=== PATIENT | male | born 1980 | race Caucasian/White ===

== ENCOUNTER 2017-07-01 15:35 | Inpatient (IN) | payer OTHER ==
[2017-07-01] MEDS ORDERED: BOOSTRIX IM ONE ×2 (15:49→22:37)
--- NOTE | 2017-07-01 15:55 | Emergency Department Report ---
Entered by BRINA BACK, acting as scribe for IMELDA COELHO NP. Chief Complaint: Extremity Injury, Lower Stated Complaint: RT KNEE PAIN Time Seen by Provider: 07/01/17 15:45 - HPI History of Present Illness: 37 y/o male with Hx of HTN, presents with right knee pain and swelling PT states he [place] PT states today, his knee busted open and he had blood running down his leg - ROS Review of Systems: +right knee pain +right knee swelling -SOB - Exam Vital Signs: Vital Signs 07/01/17 15:47 Temperature 99 F Pulse Rate 124 H Respiratory 22 Rate Blood Pressure 233/144 O2 Sat by Pulse 97 Oximetry Physical Exam: Extremity: right anterior knee swelling, redness MSE screening note: Focused history and physical exam performed. Due to findings the following was ordered: ekg, labs, xr ED Disposition for MSE Condition: Stable This documentation as recorded by the scribe,BRINA BACK,accurately reflects the service I personally performed and the decisions made by ,IMELDA COELHO NP.
[2017-07-01 16:39] LABS: Alanine Aminotransferase 15 units/L (7-56); Albumin 3.8 g/dL (3.9-5); Albumin/Globulin Ratio 0.8 %; Alkaline Phosphatase 116 units/L (35-129); Anion Gap 19 mmol/L; Blood Urea Nitrogen 12 mg/dL (9-20); Calcium 9.6 mg/dL (8.4-10.2); Carbon Dioxide 27 mmol/L (22-30); Chloride 93.4 mmol/L (98-107); Glucose 145 mg/dL (75-100); Sodium 136 mmol/L (137-145); Total Protein 8.4 g/dL (6.3-8.2)
[2017-07-01 16:52] LABS: Basophils % (Auto) 0.2 % (0.0-1.8); Eosinophils % (Auto) 0.2 % (0.0-4.3); Hemoglobin 13.9 gm/dl (11.8-15.2); Mean Corpuscular HGB Conc 33 % (32-34); Mean Corpuscular Volume 76 fl (84-94); Platelet Count 359 K/mm3 (140-440); Red Cell Distribution Width 13.9 % (13.2-15.2); White Blood Count 19.7 K/mm3 (4.5-11.0)
[2017-07-01 16:56] LABS: Mean Corpuscular Hemoglobin 25 pg (28-32)
[2017-07-01] MEDS ORDERED: TYLENOL PO ONE ×2 (22:26→22:53)
[2017-07-01] MEDS ORDERED: CATAPRES PO ONE (22:33)
[2017-07-01] MEDS ORDERED: VANCOMYCIN/NS 1 GM/250 ML 1 GM/250 ML BAG IV ONE (23:05)
[2017-07-01] MEDS ORDERED: ZOFRAN IV ONE (23:08)
[2017-07-01] MEDS ORDERED: MORPHINE IV ONE (23:08)
[2017-07-01] MEDS ORDERED: NACL 0.9% 1000 ML 1,000 ML IV ONE (23:13)
--- NOTE | 2017-07-01 23:17 | Emergency Department Report ---
HPI - General Chief Complaint: Extremity Injury, Lower Time Seen by Provider: 07/01/17 15:45 - HPI HPI: Room 9 The patient is a 37-year-old male presenting with a chief complaint of right knee pain. Patient states approximately one week ago he slipped and fell landing on his right knee. Patient denies any lacerations at the time patient states she had pain in the knee since the fall but it increased from 4 days ago. 4 days ago the patient will also noticed swelling to the right knee. Patient states when he came to the ED and felt blood running down his leg. Patient is uncertain of his had a fever at home. The patient currently gives his pain a score of 7/10 Location: Right knee Duration: 1 week Quality: Pain Severity: 7/10 Modifying factors: [see above] Context: [see above] Mode of transportation: Unknown ED Past Medical Hx - Past Medical History Previous Medical History?: Yes Hx Hypertension: Yes Additional medical history: Right knee pain - Surgical History Past Surgical History?: Yes Additional Surgical History: Right knee meniscus and tendon repair 2010 in [place] - Family History Family history: no significant - Social History Smoking Status: Current Every Day Smoker (1/2 pack per day) Substance Use Type: None (denies illicit drug use) ED Review of Systems ROS: Stated complaint: RT KNEE PAIN Other details as noted in HPI Comment: All other systems reviewed and negative Constitutional: fever. denies: chills Eyes: denies: eye pain, eye discharge, vision change ENT: denies: ear pain, throat pain Respiratory: denies: cough, shortness of breath, wheezing Cardiovascular: denies: chest pain, palpitations Endocrine: no symptoms reported Gastrointestinal: denies: abdominal pain, nausea, diarrhea Genitourinary: denies: urgency, dysuria Musculoskeletal: back pain, arthralgia Skin: change in color. denies: lesions Neurological: denies: headache, weakness, paresthesias Psychiatric: denies: anxiety, depression Hematological/Lymphatic: denies: easy bleeding, easy bruising Physical Exam - Physical Exam Vital Signs: Vital Signs 07/01/17 07/01/17 15:47 22:00 Temperature 99 F 101.0 F H Pulse Rate 124 H 101 H Respiratory 22 18 Rate Blood Pressure 233/144 Blood Pressure 167/101 [Right] O2 Sat by Pulse 97 98 Oximetry Physical Exam: GENERAL: The patient is well-developed well-nourished male lying on stretcher not appearing to be in acute distress. [] HEENT: Normocephalic. Atraumatic. Extraocular motions are intact. Patient has moist mucous membranes. NECK: Supple. Trachea midline CHEST/LUNGS: Clear to auscultation. There is no respiratory distress noted. HEART/CARDIOVASCULAR: Regular. There is no tachycardia. There is no gallop rub or murmur. ABDOMEN: Abdomen is soft, nontender. Patient has normal bowel sounds. There is no abdominal distention. SKIN: There is a region of fluctuance overlying the right knee with entire right knee incompetence and erythema consistent with cellulitis. There is dried blood present overlying the right knee but no active discharge seen. There is no diaphoresis. NEURO: The patient is awake, alert, and oriented. The patient is cooperative. The patient has normal speech MUSCULOSKELETAL: There is tenderness to the right knee. ED Course Vital Signs 07/01/17 07/01/17 15:47 22:00 Temperature 99 F 101.0 F H Pulse Rate 124 H 101 H Respiratory 22 18 Rate Blood Pressure 233/144 Blood Pressure 167/101 [Right] O2 Sat by Pulse 97 98 Oximetry ED Medical Decision Making - Lab Data Result diagrams: 07/01/17 16:04 07/01/17 16:04 - EKG Data -: EKG Interpreted by Me EKG shows normal: sinus rhythm Rate: tachycardia (109 bpm) - EKG Data When compared to previous EKG there are: previous EKG unavailable Interpretation: nonspecific ST-T wave sia - Radiology Data Radiology results: image reviewed (right knee x-ray) interpreted by me: Right knee x-ray-no fracture seen. - Differential Diagnosis cellulitis, knee abscess, septic arthritis, Critical care attestation.: If time is entered above; I have spent that time in minutes in the direct care of this critically ill patient, excluding procedure time. ED Disposition Clinical Impression: Cellulitis of right knee, Fever Disposition: OP ADMIT IP TO THIS HOSP Is pt being admited?: Yes Does the pt Need Aspirin: Yes Condition: Fair Referrals: PRIMARY CARE, [Primary Care Provider] - 3-5 Days Time of Disposition: 23:57 (hospitalist paged) Blank Doc - Documentation Documentation: Needle aspiration of right knee fluctuance. Right knee was prepped with Betadine and then lidocaine 2% with epi was administered (total of 4 mL's). 19-gauge needle was introduced and only a small amount of blood was aspirated. There is no purulent drainage. A second site was attempted with the same results. Nursing to clean in place dressing on right knee aspiration site
[2017-07-01] MEDS ORDERED: XYLOCAINE 2%/EPI 1:100,000 INFILTRATI ONE (23:19)
[2017-07-01] MEDS ORDERED: XYLOCAINE 1%/ EPI 1:100,000 INFILTRATI ONE (23:45)
[2017-07-02] MEDS ORDERED: K-DUR PO ONE ×2 (00:01→11:40)
--- NOTE | 2017-07-02 01:36 | Admit Criteria Form ---
Admission Criteria Documentation: CELLULITIS Clinical Indications for Admission to Inpatient Care (Place 'X' for any and all applicable criteria): Admission is indicated for ANY ONE of the following(1)(2)(3)(4)(5): [ ]I. Limb-threatening infection [ ]II. High-risk comorbid condition as indicated by ANY ONE of the following: [ ]a) Uncontrolled diabetes (eg, HbA1c greater than 10% (0.1)) [ ]b) Cirrhosis [ ]c) Neutropenia [ ]d) Asplenia [ ]e) Immunosuppression [ ]f) Symptomatic heart failure [ ]III. Failure of outpatient therapy as indicated by ALL of the following: [ ]a) Progression or no improvement after adequate trial (minimum of 48 hours, with longer period for stable lower extremity infection) [ ]b) Adequate antibiotic regimen as indicated by use of ANY ONE of the following: [ ]i) First-generation cephalosporin (e.g., cephalexin) [ ]ii) Antistaphylococcal penicillin (e.g., dicloxacillin) [ ]iii) Penicillin-allergic patient regimen (clindamycin, extended-spectrum fluoroquinolone, or doxycycline) [ ]iv) Resistant organism (eg, methicillin-resistant Staphylococcus aureus) regimen (6) [ ]c) Outpatient intravenous therapy regimen is not appropriate due to ANY ONE of the following. (7)(8)(9)(10): [ ]i) It was tried and was not successful (eg, progression of infection). [ ]ii) It is not available or cannot be arranged in a clinically appropriate time frame (e.g., the next day). [ ]iii) Clinical presentation (eg, acuity of infection, rapidity of progression, confirmed or suspected bacteremia) is judged to require ALL of the following: [ ]1) Immediate initiation of intravenous therapy ( eg, cannot wait for next day) [ ]2) Intensity of patient monitoring and observation (eg, vital sign measurement, checks for infection progression) that cannot be provided at other than inpatient level of care [ ]IV. Mental status changes [ ]V. Bacteremia [ ]. Hemodynamic instability [ ]VII. Suspected necrotizing soft tissue infection (e.g., gas in tissue)(11)( 12) [ ]VIII. Orbital infection (13)(14) [ ]IX. Associated surgical procedure (e.g., abscess drainage, debridement) not amenable to outpatient, emergency department, or observation care [ ]X. Cutaneous gangrene [ ]XI. High fever (temperature greater than 39.5 degrees C (103.1 degrees F) (oral)) not responsive to outpatient, emergency department, or observation care therapy [X ]XIII. Inpatient admission required rather than observation care (Also use Cellulitis: Observation Care as appropriate) because of ANY ONE of the following : [ ]a) Periorbital or perineal infection that is severe or worsening [ ]b) Severe pain requiring acute inpatient management [ ]c) IV fluid to replace significant ongoing (e.g., for over 24 hours) losses (greater than 3L/m2 per day) [ ]d) Compartment syndrome monitoring (17) [ ]e) Strict or protective (eg, laminar flow) isolation [ ]f) Urgent debridement or skin grafting [ ]g) Bone or joint debridement [ ]h) Immediate inpatient surgery [ X]i) Other condition, treatment or monitoring requiring inpatient admission Extended stay beyond goal length of stay may be needed for (1)(18): [ ]a) Necrotizing soft tissue infection or fasciitis [ ]b) Gram-negative infection [ ]c) Methicillin-resistant Staphylococcal aureus (MRSA) infection [ ]d) Peripheral venous insufficiency with cellulitis [ ]e) Extensive edema [ ]f) Sepsis or continued Hemodynamic instability [ ]g) Continued high fever or mental status change [ ]h) Bacteremia [ ]i) Active serious comorbid conditions ( eg, heart failure, renal insufficiency) The original [facility] content created by [employer] has been revised. The portions of the content which have been revised are identified through the use of italic text or in bold, and [facility] has neither reviewed nor approved the modified material. All other unmodified content is copyright [facility] [employer] Please see references footnoted in the original [facility] [employer] edition 2016 Admission Criteria Met: Yes
[2017-07-02] MEDS ORDERED: MORPHINE IV PRN (02:24)
[2017-07-02] MEDS ORDERED: ZOFRAN IV PRN (02:25)
[2017-07-02] MEDS ORDERED: CLEOCIN 900 MG/50 mL 900 MG/50 ML BAG IV ONE ×2 (02:45→03:47)
[2017-07-02] MEDS ORDERED: VANCOMYCIN PHARMACY TO DOSE IV SCH (03:00)
[2017-07-02] MEDS ORDERED: TYLENOL ONE (03:19)
[2017-07-02] MEDS ORDERED: VANCOMYCIN 1,500 MG in NACL 0.9% 500 ML 500 ML IV ONE (04:00)
[2017-07-02] MEDS ORDERED: NACL 0.9% 1000 ML 1,000 ML ONE (05:00)
[2017-07-02] MEDS: KCL 10MEQ/100ML 10 MEQ/100 ML BAG IV SCH ×2 (07:30→08:53)
--- NOTE | 2017-07-02 08:02 | History and Physical Report ---
CHIEF COMPLAINT: Pain and swelling in the right knee. HISTORY OF PRESENT ILLNESS: The patient is a 37-year-old male who said he got injured about one week ago when he slipped and fell landing on his right knee with pain and swelling. He did not sustain any laceration when he fell. He said that the pain in the knee increased about 4 days ago. The patient said he has had injury in that knee sometime in the past and he said that prior to coming to the Emergency Room, he had some tight material across the right knee that led to the swelling in the knee, popping with some drainage of some bloody material. He said he had some mild fever, but denied history of chills. Denies history of nausea or vomiting and denies history of shortness of breath. PAST MEDICAL HISTORY: Pertinent for hypertension and right knee injury in the past. PAST SURGICAL HISTORY: Pertinent for right knee meniscal and tendon repair in 2009. FAMILY HISTORY: Noncontributory. SOCIAL HISTORY: The patient smokes cigarettes, does not drink alcohol and does not use illicit drugs. MEDICATIONS: The patient is not on any home medications. ALLERGIES: THE PATIENT IS ALLERGIC TO PENICILLIN. REVIEW OF SYSTEMS: CONSTITUTIONAL: There is no fever, but no chills, no diaphoresis. HEENT: There is no headache or sore throat. CARDIOVASCULAR: There is no chest pain, orthopnea. RESPIRATORY: There is no shortness of breath or cough. GASTROINTESTINAL: There is no nausea, no vomiting, no abdominal pain, diarrhea or constipation. NEUROLOGICAL: There is no numbness, no dizziness, no altered mental status. MUSCULOSKELETAL: There is pain and swelling in the right knee area. DERMATOLOGICAL: There is ulceration in the right area with fluid drainage, but no itching. GENITOURINARY: There is no dysuria, hematuria or flank pain. Rest of system review is normal. PHYSICAL EXAMINATION: GENERAL: At the time of exam, the patient was found to be alert, oriented x 3 and not in acute distress. VITAL SIGNS: The patient's vital signs shows temperature of 101 degrees Fahrenheit, pulse of 101, respirations 18, blood pressure ____, O2 sat of 98% on room air. HEENT: Showed pupils to be equal, round, reactive to light and accommodating. Extraocular muscles are intact. NECK: Supple with no JVD or carotid bruit. CARDIOVASCULAR: Show first and second heart sounds with no gallops or murmur. RESPIRATORY: Show good air entry on both sides of the lung with no abnormal breath sounds. GASTROINTESTINAL: Show abdomen to be full, soft, nontender with no organomegaly or rigidity. CENTRAL NERVOUS SYSTEM: Shows no focal deficit. MUSCULOSKELETAL: Show no joint swelling or tenderness. DERMATOLOGICAL: Show no skin rash. MUSCULOSKELETAL: Show right knee joint tenderness with swelling. DERMATOLOGICAL: Showed some ulceration in the anterior right knee joint area. GENITOURINARY: Show no costovertebral angle tenderness. PERTINENT LABORATORY AND IMAGING STUDIES: The patient had x-ray of the right knee done that showed no fracture. The patient's lab result shows CBC with a high white count of 19,700 with normal hemoglobin and normal hematocrit. CBC differential showing elevated segmented neutrophil count of 82.7% with no significant bands. Chemistry shows low potassium of 3.0 with a slightly low albumin of 3.8. DIAGNOSIS: Cellulitis of the right knee. PLAN: The patient will be admitted to medical floor and will be on IV morphine 2 mg every 3 hours as needed for pain. The patient has had IV clindamycin and one dose of vancomycin in the Emergency Room and will continue with vancomycin with pharmacy to dose. The patient will be on IV Zofran 4 mg every 8 hours for nausea and vomiting. The patient will be on IV potassium chloride 20 mEq as a K-rider to be given as 1 dose. The patient will be on Tylenol 650 mg by mouth every 4 hours for fever and headache. The patient will be on IV Zofran 4 mg every 6 hours for nausea and vomiting. The patient's home medication will be reconciled and applied accordingly for management of blood pressure. The patient will have IV hydralazine 10 mg every 4 hours as needed for blood pressure above 150/90. JOB# [id number] OCN/NTS
[2017-07-02 08:37] LABS: Anion Gap 17 mmol/L; BUN/Creatinine Ratio 13.33; Blood Urea Nitrogen 12 mg/dL (9-20); Calcium 8.2 mg/dL (8.4-10.2); Carbon Dioxide 25 mmol/L (22-30); Chloride 98.8 mmol/L (98-107); Glucose 134 mg/dL (75-100); Potassium 3.2 mmol/L (3.6-5.0); Sodium 138 mmol/L (137-145)
--- NOTE | 2017-07-02 09:34 | XRay Report ---
Right knee 3 views. History: Knee pain after fall. Findings: There appears to be generalized soft tissue edema. There is no evidence of fracture . A chronic fracture deformity of the proximal fibular shaft is noted. There is superior dislocation of the patella. Small surgical screws are seen within the patella. The joint space is normal. Calcification is noted in the medial collateral ligament. Impression: Mild superior dislocation/subluxation of the patella. Generalized soft tissue swelling is present.
--- NOTE | 2017-07-02 11:40 | Progress Note ---
Assessment and Plan Assessment and plan: Patient is 37-year-old man with a history of hypertension, tobacco dependency, morbid obesity BMI 44.8 and penicillin allergy who presents with right knee pains. Patient gives history of slip and fall at the [place] airport when he is coming from [place]. He is visiting here from [place]. -Sepsis due to cellulitis of the right knee versus septic joint: Consult ortho and infectious disease physicians, continue IV antibiotics -Hypertension: Continue to monitor and treat IV antihypertensives needed -Morbid obesity, BMI 44.8: life modification -Tobacco dependency: Counseled stopping done -DVT prophylaxis: sq heparin History Interval history: Patient seen and examined. Follow up on current diagnosis/right knee pains. Overnight uneventful. No cp, sob, n/v or severe headaches. Imaging, old records , testing, labs, nursing notes reviewed. Hospitalist Physical - Physical exam Narrative exam: GEN: WDWN, NAD, AWAKE, ALERT, ORIENTATED x 3 HEENT: NCAT, PERRL, EOMI, OP CLEAR NECK: SUPPLE, NO THYROMEGALY, NO JVD, NO LAD CVS: RRR, NORMAL S1S2 LUNGS/CHEST: CTA B, NORMAL CHEST EXPANSION B, GOOD AIR ENTRY B ABD: SOFT, NTND, GBS, NO REBOUND OR GUARDING EXT/SKIN: Right knee swollen MSK: FROM X 4 EXTREMITIES except right knee NEURO: CN 2-12 GROSSLY INTACT, NO FOCAL DEFICITS PSY: CALM - Constitutional Vitals: Temp Pulse Resp BP Pulse Ox 98.0 F 86 18 139/83 98 07/02/17 08:11 07/02/17 08:11 07/02/17 08:11 07/02/17 08:11 07/02/17 08:11 Results - Labs CBC & Chem 7: 07/01/17 16:04 07/02/17 08:02 Labs: Laboratory Last Values WBC 19.7 K/mm3 (4.5-11.0) H 07/01/17 16:04 RBC 5.50 M/mm3 (3.65-5.03) H 07/01/17 16:04 Hgb 13.9 gm/dl (11.8-15.2) 07/01/17 16:04 Hct 42.0 % (35.5-45.6) 07/01/17 16:04 MCV 76 fl (84-94) L 07/01/17 16:04 MCH 25 pg (28-32) L 07/01/17 16:04 MCHC 33 % (32-34) 07/01/17 16:04 RDW 13.9 % (13.2-15.2) 07/01/17 16:04 Plt Count 359 K/mm3 (140-440) 07/01/17 16:04 Lymph % (Auto) 10.5 % (13.4-35.0) L 07/01/17 16:04 [place] % (Auto) 6.4 % (0.0-7.3) 07/01/17 16:04 Eos % (Auto) 0.2 % (0.0-4.3) 07/01/17 16:04 Baso % (Auto) 0.2 % (0.0-1.8) 07/01/17 16:04 Lymph # 2.1 K/mm3 (1.2-5.4) 07/01/17 16:04 [place] # 1.3 K/mm3 (0.0-0.8) H 07/01/17 16:04 Eos # 0.0 K/mm3 (0.0-0.4) 07/01/17 16:04 Baso # 0.0 K/mm3 (0.0-0.1) 07/01/17 16:04 Seg Neutrophils % 82.7 % (40.0-70.0) H 07/01/17 16:04 Seg Neutrophils # 16.3 K/mm3 (1.8-7.7) H 07/01/17 16:04 Sodium 138 mmol/L (137-145) 07/02/17 08:02 Potassium 3.2 mmol/L (3.6-5.0) L 07/02/17 08:02 Chloride 98.8 mmol/L (98-107) 07/02/17 08:02 Carbon Dioxide 25 mmol/L (22-30) 07/02/17 08:02 Anion Gap 17 mmol/L 07/02/17 08:02 BUN 12 mg/dL (9-20) 07/02/17 08:02 Creatinine 0.9 mg/dL (0.8-1.5) 07/02/17 08:02 Estimated GFR > 60 ml/min 07/02/17 08:02 BUN/Creatinine Ratio 13.33 % 07/02/17 08:02 Glucose 134 mg/dL (75-100) H 07/02/17 08:02 Lactic Acid 1.70 mmol/L (0.7-2.0) 07/01/17 16:04 Calcium 8.2 mg/dL (8.4-10.2) L 07/02/17 08:02 Total Bilirubin 0.90 mg/dL (0.1-1.2) 07/01/17 16:04 AST 13 units/L (5-40) 07/01/17 16:04 ALT 15 units/L (7-56) 07/01/17 16:04 Alkaline Phosphatase 116 units/L (35-129) 07/01/17 16:04 Total Protein 8.4 g/dL (6.3-8.2) H 07/01/17 16:04 Albumin 3.8 g/dL (3.9-5) L 07/01/17 16:04 Albumin/Globulin Ratio 0.8 % 07/01/17 16:04
[2017-07-02] MEDS: HEPARIN SUB-Q SCH ×2 (13:29→22:47)
[2017-07-02] MEDS: APRESOLINE IV PRN (13:55)
[2017-07-02] MEDS ORDERED: VANCOMYCIN 2,000 MG in NACL 0.9% 500 ML 500 ML IV SCH (16:00)
[2017-07-02] MEDS: NORMODYNE IV PRN (16:24)
[2017-07-02] MEDS: NORVASC PO SCH (16:25)
--- NOTE | 2017-07-02 16:46 | Consultation ---
History of Present Illness - HPI Consult date: 07/02/17 Consult reason: joint pain History of present illness: 37-year-old male who complains of right knee pain patient states he was arriving from [place] at the [place] airport when he slipped and landed onto his right knee he began having some pain and swelling afterwards which got worse over the next several days patient was seen in the emergency room where x- rays were taken and no fractures were seen however patient did have evidence of cellulitis with possible deep infection. Asked to evaluate to rule out sepsis Medications and Allergies Allergies Allergy/AdvReac Type Severity Reaction Status Date / Time Penicillins Allergy Unknown Verified 07/01/17 15:47 Home Medications Medication Instructions Recorded Confirmed Last Taken Type No Known Home Medications [No 07/02/17 07/02/17 Unknown History Reported Home Medications] Active Meds: Active Medications Acetaminophen (Tylenol) 650 mg PO Q4H PRN PRN Reason: For Pain/Fever/Headache Amlodipine Besylate (Norvasc) 10 mg PO QDAY [facility] Last Admin: 07/02/17 16:25 Dose: 10 mg Heparin Sodium (Porcine) (Heparin) 5,000 unit SUB-Q Q12HR [facility] Last Admin: 07/02/17 13:29 Dose: 5,000 unit Hydralazine HCl (Apresoline) 10 mg IV Q4H PRN PRN Reason: Blood Pressure Last Admin: 07/02/17 13:55 Dose: 10 mg Vancomycin HCl 2,000 mg/ (Sodium Chloride) 540 mls @ 250 mls/hr IV Q12H [facility] Labetalol HCl (Normodyne) 10 mg IV Q4H PRN PRN Reason: Blood Pressure Last Admin: 07/02/17 16:24 Dose: 10 mg Morphine Sulfate (Morphine) 2 mg IV Q3H PRN PRN Reason: Pain, Moderate (4-6) Ondansetron HCl (Zofran) 4 mg IV Q8H PRN PRN Reason: Nausea And Vomiting Vancomycin HCl (Vancomycin Pharmacy To Dose) 1 each IV PKCONSULT DANA PRN Reason: Protocol Physical Examination - Physical exam Narrative exam: On physical examination the right knee was was examined here he was noted to have some bloody drainage from a previous Aspiration in the emergency room, he had good active range of motion at the knee joint there was slight warmth palpated but no surrounding erythema was noted Assessment and Plan Assessment - cellulitis right knee with prepatellar bursitis Recommendations - would continue IV antibiotics for now patient may be switched to appropriate oral antibiotics in the future he can weight-bear as tolerated
[2017-07-02] MEDS: VANCOMYCIN 2,000 MG in NACL 0.9% 500 ML 500 ML IV SCH (20:47)
[2017-07-03] MEDS: APRESOLINE IV PRN (01:43)
[2017-07-03 05:05] LABS: Hematocrit 36.8 % (35.5-45.6); Hemoglobin 12.2 gm/dl (11.8-15.2); Mean Corpuscular HGB Conc 33 % (32-34); Mean Corpuscular Volume 75 fl (84-94); Platelet Count 276 K/mm3 (140-440); Red Blood Count 4.89 M/mm3 (3.65-5.03); Red Cell Distribution Width 13.8 % (13.2-15.2); White Blood Count 11.6 K/mm3 (4.5-11.0)
[2017-07-03 05:12] LABS: Mean Corpuscular Hemoglobin 25 pg (28-32)
[2017-07-03 05:27] LABS: Anion Gap 18 mmol/L; BUN/Creatinine Ratio 11.42; Blood Urea Nitrogen 8 mg/dL (9-20); Calcium 8.8 mg/dL (8.4-10.2); Carbon Dioxide 27 mmol/L (22-30); Chloride 100.6 mmol/L (98-107); Glucose 105 mg/dL (75-100); Sodium 143 mmol/L (137-145)
--- NOTE | 2017-07-03 07:15 | Consultation ---
History of Present Illness - Reason for Consult Consult date: 07/03/17 ABX management for sepsis/right knee infection Requesting physician: THIERRY VARGHESE - History of Present Illness Mr. Paulino is a 37-year-old man who presented with pain and swelling of ~1 week after falling accidentally on a linoleum floor at [facility] onto his right knee. He denies having an open wound or abrasion of the knee. He does have a history of surgery to the right knee for a meniscus repair. He has no hardware in place per his report. He presented here for evaluation. Xray showed dislocation/ subluxation of the patella. He was evaluated by orthopedics and was felt to have coexistent prepatellar bursitis/ cellulitis. The area was drained in the ED with bloody drainage. Wound culture is sterile to date. He is empirically on Vancomycin and received Clindamycin previously. ID consultation is requested for antibiotic recommendations. Past History Past Medical History: No medical history Past Surgical History: Other (right knee meniscus repair) Social history: smoking Family history: no significant family history Medications and Allergies Allergies Allergy/AdvReac Type Severity Reaction Status Date / Time Penicillins Allergy Unknown Verified 07/01/17 15:47 Home Medications Medication Instructions Recorded Confirmed Last Taken Type No Known Home Medications [No 07/02/17 07/02/17 Unknown History Reported Home Medications] Active Meds: Active Medications Acetaminophen (Tylenol) 650 mg PO Q4H PRN PRN Reason: For Pain/Fever/Headache Amlodipine Besylate (Norvasc) 10 mg PO QDAY DANA Last Admin: 07/02/17 16:25 Dose: 10 mg Heparin Sodium (Porcine) (Heparin) 5,000 unit SUB-Q Q12HR DANA Last Admin: 07/02/17 22:47 Dose: 5,000 unit Hydralazine HCl (Apresoline) 10 mg IV Q4H PRN PRN Reason: Blood Pressure Last Admin: 07/03/17 01:43 Dose: 10 mg Vancomycin HCl 2,000 mg/ (Sodium Chloride) 540 mls @ 250 mls/hr IV Q12H DANA Last Admin: 07/02/17 20:47 Dose: 250 mls/hr Labetalol HCl (Normodyne) 10 mg IV Q4H PRN PRN Reason: Blood Pressure Last Admin: 07/02/17 16:24 Dose: 10 mg Morphine Sulfate (Morphine) 2 mg IV Q3H PRN PRN Reason: Pain, Moderate (4-6) Ondansetron HCl (Zofran) 4 mg IV Q8H PRN PRN Reason: Nausea And Vomiting Vancomycin HCl (Vancomycin Pharmacy To Dose) 1 each IV PKCONSULT DANA PRN Reason: Protocol Review of Systems All systems: negative Constitutional: no fever, no chills, no sweats Gastrointestinal: no abdominal pain, no nausea, no diarrhea Musculoskeletal: shooting leg pain, redness of joints Integumentary: no rash Physical Examination - Constitutional Vitals: Vital Signs Temp Pulse Resp BP Pulse Ox 99.3 F 89 18 177/98 99 07/03/17 04:00 07/03/17 04:00 07/03/17 04:00 07/03/17 04:00 07/02/17 22:00 Temperature -Last 24 Hours Temperature 99.3 F Temperature 99.3 F Temperature 98.5 F Temperature 98.7 F Temperature 98.0 F General appearance: Present: no acute distress, obese - EENT Eyes: Absent: conjunctival injection - Respiratory Respiratory: bilateral: CTA - Cardiovascular Rhythm: regular Heart Sounds: Present: S1 & S2 - Abdominal General gastrointestinal: Present: soft, non-distended - Integumentary Integumentary: Absent: rash - Musculoskeletal Musculoskeletal: other (right knee with fluctuant area over the right knee and a tiny incision with bloody drainage, there is mild erythema, but no increased warmth of the joint; there is also a well-healed surgical scar) - Psychiatric Psychiatric: appropriate mood/affect Results - Labs CBC & Chem 7: 07/03/17 04:16 07/03/17 04:16 Labs: Abnormal lab results 07/02/17 07/03/17 07/03/17 Range/Units 08:02 04:16 04:16 WBC 11.6 H (4.5-11.0) K/mm3 MCV 75 L (84-94) fl MCH 25 L (28-32) pg Potassium 3.2 L 3.0 L (3.6-5.0) mmol/L BUN 8 L (9-20) mg/dL Creatinine 0.7 L (0.8-1.5) mg/dL Glucose 134 H 105 H (75-100) mg/dL Calcium 8.2 L (8.4-10.2) mg/dL Microbiology 07/01/17 23:37 Peripheral/Venous Blood Culture - Preliminary NO GROWTH AFTER 24 HOURS 07/01/17 23:14 Peripheral/Venous Blood Culture - Preliminary NO GROWTH AFTER 24 HOURS 07/01/17 23:55 Knee - Right Wound Culture - Preliminary Assessment and Plan - Patient Problems (1) Cellulitis of right knee Current Visit: Yes Status: Acute Plan to address problem: 1. Keep Vancomycin until discharge, but will resume Clindamycin 300mg PO q8h and topical antibiotic ointment to open incision (e.g. triple ointment or neosporin) to complete 7 days. 2. Area over right knee may benefit from further drainage. 3. A PCN allergy is noted, but patient has never taken PCN in the past. He says his family members have had issues with PCN, but does not specify what those problems were.
[2017-07-03] MEDS ORDERED: K-DUR PO ONE (08:00)
[2017-07-03] MEDS: CLEOCIN PO SCH ×3 (09:13→21:41)
[2017-07-03] MEDS: NORVASC PO SCH (09:13)
[2017-07-03] MEDS: HEPARIN SUB-Q SCH ×2 (09:14→21:40)
[2017-07-03] MEDS: VANCOMYCIN 2,000 MG in NACL 0.9% 500 ML 500 ML IV SCH ×2 (09:24→21:03)
--- NOTE | 2017-07-03 11:56 | Progress Note ---
Assessment and Plan Assessment and plan: Patient is 37-year-old man with a history of hypertension, tobacco dependency, morbid obesity BMI 44.8, (he denies) who presents with right knee pains. Patient gives history of slip and fall at the [place] when he is coming from [place]. He is visiting here from [place]. -Sepsis due to cellulitis of the right knee versus septic joint: Consult ortho and infectious disease physicians, continue IV antibiotics -Hypertension: Continue to monitor and treat IV antihypertensives needed -Morbid obesity, BMI 44.8: life modification -Tobacco dependency: Counseled stopping done -DVT prophylaxis: sq heparin May need additional I-n-D History Interval history: Patient seen and examined. Follow up on current diagnosis/right knee pains. Overnight uneventful. No cp, sob, n/v or severe headaches. Imaging, old records , testing, labs, nursing notes reviewed. Hospitalist Physical - Physical exam Narrative exam: GEN: WDWN, NAD, AWAKE, ALERT, ORIENTATED x 3 HEENT: NCAT, PERRL, EOMI, OP CLEAR NECK: SUPPLE, NO THYROMEGALY, NO JVD, NO LAD CVS: RRR, NORMAL S1S2 LUNGS/CHEST: CTA B, NORMAL CHEST EXPANSION B, GOOD AIR ENTRY B ABD: SOFT, NTND, GBS, NO REBOUND OR GUARDING EXT/SKIN: Right knee swollen MSK: FROM X 4 EXTREMITIES except right knee NEURO: CN 2-12 GROSSLY INTACT, NO FOCAL DEFICITS PSY: CALM - Constitutional Vitals: Temp Pulse Resp BP Pulse Ox 98.5 F 87 18 172/99 98 07/03/17 07:20 07/03/17 09:13 07/03/17 07:20 07/03/17 09:13 07/03/17 07:20 General appearance: Present: no acute distress, obese Results - Labs CBC & Chem 7: 07/03/17 04:16 07/03/17 04:16 Labs: Laboratory Last Values WBC 11.6 K/mm3 (4.5-11.0) H 07/03/17 04:16 RBC 4.89 M/mm3 (3.65-5.03) 07/03/17 04:16 Hgb 12.2 gm/dl (11.8-15.2) 07/03/17 04:16 Hct 36.8 % (35.5-45.6) 07/03/17 04:16 MCV 75 fl (84-94) L 07/03/17 04:16 MCH 25 pg (28-32) L 07/03/17 04:16 MCHC 33 % (32-34) 07/03/17 04:16 RDW 13.8 % (13.2-15.2) 07/03/17 04:16 Plt Count 276 K/mm3 (140-440) 07/03/17 04:16 Lymph % (Auto) 10.5 % (13.4-35.0) L 07/01/17 16:04 [place] % (Auto) 6.4 % (0.0-7.3) 07/01/17 16:04 Eos % (Auto) 0.2 % (0.0-4.3) 07/01/17 16:04 Baso % (Auto) 0.2 % (0.0-1.8) 07/01/17 16:04 Lymph # 2.1 K/mm3 (1.2-5.4) 07/01/17 16:04 [place] # 1.3 K/mm3 (0.0-0.8) H 07/01/17 16:04 Eos # 0.0 K/mm3 (0.0-0.4) 07/01/17 16:04 Baso # 0.0 K/mm3 (0.0-0.1) 07/01/17 16:04 Seg Neutrophils % 82.7 % (40.0-70.0) H 07/01/17 16:04 Seg Neutrophils # 16.3 K/mm3 (1.8-7.7) H 07/01/17 16:04 Sodium 143 mmol/L (137-145) 07/03/17 04:16 Potassium 3.0 mmol/L (3.6-5.0) L 07/03/17 04:16 Chloride 100.6 mmol/L (98-107) 07/03/17 04:16 Carbon Dioxide 27 mmol/L (22-30) 07/03/17 04:16 Anion Gap 18 mmol/L 07/03/17 04:16 BUN 8 mg/dL (9-20) L 07/03/17 04:16 Creatinine 0.7 mg/dL (0.8-1.5) L 07/03/17 04:16 Estimated GFR > 60 ml/min 07/03/17 04:16 BUN/Creatinine Ratio 11.42 % 07/03/17 04:16 Glucose 105 mg/dL (75-100) H 07/03/17 04:16 Lactic Acid 1.70 mmol/L (0.7-2.0) 07/01/17 16:04 Calcium 8.8 mg/dL (8.4-10.2) 07/03/17 04:16 Magnesium 1.90 mg/dL (1.7-2.3) 07/03/17 04:16 Total Bilirubin 0.90 mg/dL (0.1-1.2) 07/01/17 16:04 AST 13 units/L (5-40) 07/01/17 16:04 ALT 15 units/L (7-56) 07/01/17 16:04 Alkaline Phosphatase 116 units/L (35-129) 07/01/17 16:04 Total Protein 8.4 g/dL (6.3-8.2) H 07/01/17 16:04 Albumin 3.8 g/dL (3.9-5) L 07/01/17 16:04 Albumin/Globulin Ratio 0.8 % 07/01/17 16:04
[2017-07-04] MEDS: APRESOLINE IV PRN ×3 (00:54→22:00)
[2017-07-04] MEDS: TYLENOL PO PRN (00:55)
[2017-07-04 05:42] LABS: Hematocrit 37.4 % (35.5-45.6); Hemoglobin 12.5 gm/dl (11.8-15.2); Mean Corpuscular HGB Conc 33 % (32-34); Mean Corpuscular Volume 74 fl (84-94); Platelet Count 331 K/mm3 (140-440); Red Blood Count 5.03 M/mm3 (3.65-5.03); White Blood Count 11.7 K/mm3 (4.5-11.0)
[2017-07-04 05:48] LABS: Mean Corpuscular Hemoglobin 25 pg (28-32)
[2017-07-04] MEDS: CLEOCIN PO SCH ×3 (08:00→22:01)
[2017-07-04] MEDS: VANCOMYCIN 2,000 MG in NACL 0.9% 500 ML 500 ML IV SCH ×2 (08:00→22:00)
[2017-07-04] MEDS: NORVASC PO SCH (10:26)
[2017-07-04] MEDS: HEPARIN SUB-Q SCH ×3 (10:27→22:09)
--- NOTE | 2017-07-04 11:04 | Progress Note ---
Assessment and Plan Assessment and plan: Patient is 37-year-old man with a history of hypertension, tobacco dependency, morbid obesity BMI 44.8, penicillin allergy (he denies) who presents with right knee pains. Patient gives history of slip and fall at the [place] airport when he is coming from [place]. He is visiting here from [place]. -Sepsis due to cellulitis of the right knee versus septic joint: Consulted ortho and infectious disease physicians, continue IV antibiotics -Hypertension: Continue to monitor and treat IV antihypertensives needed -Morbid obesity, BMI 44.8: life modification -Tobacco dependency: Counseled stopping done -DVT prophylaxis: sq heparin Full code May need additional I-n-D, called Dr. Jenkins Disposition: Once afebrile and clear by Dr. Jenkins History Interval history: Patient seen and examined. Follow up on current diagnosis/right knee pains which has improved slightly. Overnight eventful with fevers. No cp, sob, n/v or severe headaches. Imaging, old records, testing, labs, nursing notes reviewed. Hospitalist Physical - Physical exam Narrative exam: GEN: WDWN, NAD, AWAKE, ALERT, ORIENTATED x 3 HEENT: NCAT, PERRL, EOMI, OP CLEAR NECK: SUPPLE, NO THYROMEGALY, NO JVD, NO LAD CVS: RRR, NORMAL S1S2 LUNGS/CHEST: CTA B, NORMAL CHEST EXPANSION B, GOOD AIR ENTRY B ABD: SOFT, NTND, GBS, NO REBOUND OR GUARDING EXT/SKIN: Right knee red, swollen, tender and erythematous, pinpoint drainage MSK: FROM X 4 EXTREMITIES except right knee NEURO: CN 2-12 GROSSLY INTACT, NO FOCAL DEFICITS PSY: CALM - Constitutional Vitals: Temp Pulse Resp BP Pulse Ox 97.9 F 88 20 170/109 99 07/04/17 08:00 07/04/17 10:26 07/04/17 08:00 07/04/17 10:26 07/04/17 08:00 General appearance: Present: no acute distress, obese Results - Labs CBC & Chem 7: 07/04/17 05:18 07/03/17 04:16 Labs: Laboratory Last Values WBC 11.7 K/mm3 (4.5-11.0) H 07/04/17 05:18 RBC 5.03 M/mm3 (3.65-5.03) 07/04/17 05:18 Hgb 12.5 gm/dl (11.8-15.2) 07/04/17 05:18 Hct 37.4 % (35.5-45.6) 07/04/17 05:18 MCV 74 fl (84-94) L 07/04/17 05:18 MCH 25 pg (28-32) L 07/04/17 05:18 MCHC 33 % (32-34) 07/04/17 05:18 RDW 14.0 % (13.2-15.2) 07/04/17 05:18 Plt Count 331 K/mm3 (140-440) 07/04/17 05:18 Lymph % (Auto) 10.5 % (13.4-35.0) L 07/01/17 16:04 [place] % (Auto) 6.4 % (0.0-7.3) 07/01/17 16:04 Eos % (Auto) 0.2 % (0.0-4.3) 07/01/17 16:04 Baso % (Auto) 0.2 % (0.0-1.8) 07/01/17 16:04 Lymph # 2.1 K/mm3 (1.2-5.4) 07/01/17 16:04 [place] # 1.3 K/mm3 (0.0-0.8) H 07/01/17 16:04 Eos # 0.0 K/mm3 (0.0-0.4) 07/01/17 16:04 Baso # 0.0 K/mm3 (0.0-0.1) 07/01/17 16:04 Seg Neutrophils % 82.7 % (40.0-70.0) H 07/01/17 16:04 Seg Neutrophils # 16.3 K/mm3 (1.8-7.7) H 07/01/17 16:04 Sodium 143 mmol/L (137-145) 07/03/17 04:16 Potassium 3.0 mmol/L (3.6-5.0) L 07/03/17 04:16 Chloride 100.6 mmol/L (98-107) 07/03/17 04:16 Carbon Dioxide 27 mmol/L (22-30) 07/03/17 04:16 Anion Gap 18 mmol/L 07/03/17 04:16 BUN 8 mg/dL (9-20) L 07/03/17 04:16 Creatinine 0.7 mg/dL (0.8-1.5) L 07/03/17 04:16 Estimated GFR > 60 ml/min 07/03/17 04:16 BUN/Creatinine Ratio 11.42 % 07/03/17 04:16 Glucose 105 mg/dL (75-100) H 07/03/17 04:16 Lactic Acid 1.70 mmol/L (0.7-2.0) 07/01/17 16:04 Calcium 8.8 mg/dL (8.4-10.2) 07/03/17 04:16 Magnesium 1.90 mg/dL (1.7-2.3) 07/03/17 04:16 Total Bilirubin 0.90 mg/dL (0.1-1.2) 07/01/17 16:04 AST 13 units/L (5-40) 07/01/17 16:04 ALT 15 units/L (7-56) 07/01/17 16:04 Alkaline Phosphatase 116 units/L (35-129) 07/01/17 16:04 Total Protein 8.4 g/dL (6.3-8.2) H 07/01/17 16:04 Albumin 3.8 g/dL (3.9-5) L 07/01/17 16:04 Albumin/Globulin Ratio 0.8 % 07/01/17 16:04 Vancomycin Trough 19.3 ug/mL (5.0-20.0) 07/04/17 05:18
[2017-07-04] MEDS: NORMODYNE IV PRN (23:58)
[2017-07-05] MEDS: APRESOLINE IV PRN ×2 (05:02→18:31)
[2017-07-05 05:39] LABS: Hematocrit 37.1 % (35.5-45.6); Hemoglobin 12.6 gm/dl (11.8-15.2); Mean Corpuscular HGB Conc 34 % (32-34); Mean Corpuscular Volume 75 fl (84-94); Platelet Count 347 K/mm3 (140-440); Red Blood Count 4.95 M/mm3 (3.65-5.03); Red Cell Distribution Width 13.8 % (13.2-15.2); White Blood Count 10.4 K/mm3 (4.5-11.0)
[2017-07-05 05:52] LABS: Mean Corpuscular Hemoglobin 26 pg (28-32)
[2017-07-05 06:00] LABS: Anion Gap 19 mmol/L; BUN/Creatinine Ratio 11.25; Blood Urea Nitrogen 9 mg/dL (9-20); Calcium 8.9 mg/dL (8.4-10.2); Carbon Dioxide 24 mmol/L (22-30); Chloride 102.2 mmol/L (98-107); Glucose 91 mg/dL (75-100); Sodium 142 mmol/L (137-145)
[2017-07-05] MEDS ORDERED: APRESOLINE IV ONE (06:41)
[2017-07-05] MEDS ORDERED: NITRO-BID 2% TP ONE (06:41)
[2017-07-05] MEDS: VANCOMYCIN 2,000 MG in NACL 0.9% 500 ML 500 ML IV SCH ×2 (07:53→09:54)
[2017-07-05] MEDS: TYLENOL PO PRN (08:01)
[2017-07-05] MEDS: CLEOCIN PO SCH ×2 (08:04→15:51)
[2017-07-05] MEDS: NORVASC PO SCH (09:51)
[2017-07-05] MEDS: HEPARIN SUB-Q SCH (09:58)
[2017-07-05] MEDS ORDERED: K-DUR PO ONE (11:35)
--- NOTE | 2017-07-05 11:35 | Progress Note ---
Assessment and Plan Assessment and plan: Patient is 37-year-old man with a history of hypertension, tobacco dependency, morbid obesity BMI 44.8, penicillin allergy (he denies) who presents with right knee pains. Patient gives history of slip and fall at the [place] when he is coming from [place]. He is visiting here from [place]. -Sepsis due to cellulitis of the right knee versus septic joint: Consulted ortho and infectious disease physicians, continue IV antibiotics -Hypertension: Continue to monitor and treat IV antihypertensives needed -Morbid obesity, BMI 44.8: life modification -Tobacco dependency: Counseled stopping done -DVT prophylaxis: sq heparin Full code D/w Dr. Jenkins and no further debribement planned Disposition: once wound culture resulted St. aureus growing out but no sensitivites yet start contact isolation ?mrsa History Interval history: Patient seen and examined. Follow up on current diagnosis/right knee pains which has improved. Overnight eventful with fevers. No cp, sob, n/v or severe headaches. Imaging, old records, testing, labs, nursing notes reviewed. Hospitalist Physical - Physical exam Narrative exam: GEN: WDWN, NAD, AWAKE, ALERT, ORIENTATED x 3, bmi 45 HEENT: NCAT, PERRL, EOMI, OP CLEAR NECK: SUPPLE, NO THYROMEGALY, NO JVD, NO LAD CVS: RRR, NORMAL S1S2 LUNGS/CHEST: CTA B, NORMAL CHEST EXPANSION B, GOOD AIR ENTRY B ABD: SOFT, NTND, GBS, NO REBOUND OR GUARDING EXT/SKIN: Right knee red, swollen, tender and erythematous, drainage from patella wound MSK: FROM X 4 EXTREMITIES except right knee NEURO: CN 2-12 GROSSLY INTACT, NO FOCAL DEFICITS PSY: CALM - Constitutional Vitals: Temp Pulse Resp BP Pulse Ox 98.5 F 99 H 20 178/93 98 07/05/17 07:40 07/05/17 07:40 07/05/17 07:40 07/05/17 09:51 07/05/17 07:40 General appearance: Present: no acute distress, obese Results - Labs CBC & Chem 7: 07/05/17 04:12 07/05/17 04:12 Labs: Laboratory Last Values WBC 10.4 K/mm3 (4.5-11.0) 07/05/17 04:12 RBC 4.95 M/mm3 (3.65-5.03) 07/05/17 04:12 Hgb 12.6 gm/dl (11.8-15.2) 07/05/17 04:12 Hct 37.1 % (35.5-45.6) 07/05/17 04:12 MCV 75 fl (84-94) L 07/05/17 04:12 MCH 26 pg (28-32) L 07/05/17 04:12 MCHC 34 % (32-34) 07/05/17 04:12 RDW 13.8 % (13.2-15.2) 07/05/17 04:12 Plt Count 347 K/mm3 (140-440) 07/05/17 04:12 Lymph % (Auto) 10.5 % (13.4-35.0) L 07/01/17 16:04 [place] % (Auto) 6.4 % (0.0-7.3) 07/01/17 16:04 Eos % (Auto) 0.2 % (0.0-4.3) 07/01/17 16:04 Baso % (Auto) 0.2 % (0.0-1.8) 07/01/17 16:04 Lymph # 2.1 K/mm3 (1.2-5.4) 07/01/17 16:04 [place] # 1.3 K/mm3 (0.0-0.8) H 07/01/17 16:04 Eos # 0.0 K/mm3 (0.0-0.4) 07/01/17 16:04 Baso # 0.0 K/mm3 (0.0-0.1) 07/01/17 16:04 Seg Neutrophils % 82.7 % (40.0-70.0) H 07/01/17 16:04 Seg Neutrophils # 16.3 K/mm3 (1.8-7.7) H 07/01/17 16:04 Sodium 142 mmol/L (137-145) 07/05/17 04:12 Potassium 3.0 mmol/L (3.6-5.0) L 07/05/17 04:12 Chloride 102.2 mmol/L (98-107) 07/05/17 04:12 Carbon Dioxide 24 mmol/L (22-30) 07/05/17 04:12 Anion Gap 19 mmol/L 07/05/17 04:12 BUN 9 mg/dL (9-20) 07/05/17 04:12 Creatinine 0.8 mg/dL (0.8-1.5) 07/05/17 04:12 Estimated GFR > 60 ml/min 07/05/17 04:12 BUN/Creatinine Ratio 11.25 % 07/05/17 04:12 Glucose 91 mg/dL (75-100) 07/05/17 04:12 Lactic Acid 1.70 mmol/L (0.7-2.0) 07/01/17 16:04 Calcium 8.9 mg/dL (8.4-10.2) 07/05/17 04:12 Magnesium 1.90 mg/dL (1.7-2.3) 07/03/17 04:16 Total Bilirubin 0.90 mg/dL (0.1-1.2) 07/01/17 16:04 AST 13 units/L (5-40) 07/01/17 16:04 ALT 15 units/L (7-56) 07/01/17 16:04 Alkaline Phosphatase 116 units/L (35-129) 07/01/17 16:04 Total Protein 8.4 g/dL (6.3-8.2) H 07/01/17 16:04 Albumin 3.8 g/dL (3.9-5) L 07/01/17 16:04 Albumin/Globulin Ratio 0.8 % 07/01/17 16:04 Vancomycin Trough 19.3 ug/mL (5.0-20.0) 07/04/17 05:18
--- NOTE | 2017-07-05 17:03 | Event Note ---
Date: 07/05/17 Cultures reviewed. Not yet final. Continue current management for now.
[2017-07-06 00:09] VITALS: BP 178/107
--- NOTE | 2017-07-06 07:32 | Discharge Summary ---
Providers - Providers Date of Admission: 07/02/17 02:22 Attending physician: THIERRY VARGHESE 07/02/17 11:33 Consult to Physician [CONS] Routine Consulting Provider: CORNELIA DAWN Reason For Exam: Evaluate for right knee septic arthritis Place consult to:: Gregory PERLA Notified:: Y Was contact made?: Yes If yes, spoke with:: LINDSAY OFFICE Time called:: 11:35 07/02/17 11:34 Consult to Physician [CONS] Routine Consulting Provider: MADELINE ROMERO Reason For Exam: ABX management for sepsis/right kneee infection Place consult to:: Wendi PERLA Notified:: Y Time called:: 11:40 Comment:: LEFT MESSAGE W OFFICE NUMBR 07/03/17 10:22 Consult to Wound/ET Nurse [CONS] Routine Reason For Exam: wound eval Primary care physician: 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 Bp =178/107. HR =127 temp=99.2. RA saturation=98% RR=18. Pt educated about possible risks and adverse effects of leaving the hospital with blood pressure, heart rate, and temp as noted. pt states that he is still going to leave. pt pulled off parole officer and his iv. Charge nurse aware. Dr. Zazueta notified. Pt signed AMA form Initialized on 07/06/17 00:09 - END OF NOTE Disposition: DC-07 LEFT AGAINST MED ADVICE Core Measure Documentation - Palliative Care Palliative Care/ Comfort Measures: Not Applicable - Core Measures Any of the following diagnoses?: none - VTE Discharge Requirements Deep Vein Thrombosis/Pulmonary Embolism Present on Admission: No Has pt received <5 days of overlap therapy or INR<2.0: No Anticoagulant overlap therapy prescribed at discharge: No Contraindication No Overlap Therapy order at DC: Not Indicated Exam - Constitutional Vitals: Temp Pulse Resp BP Pulse Ox 99.2 F 127 H 18 178/107 98 08/05/17 19:00 07/05/17 19:00 07/05/17 19:00 07/05/17 19:00 07/05/17 19:00 Plan Follow up with: SEB TAYLOR MD [Primary Care Provider] - 3-5 Days
== END 2017-07-05 19:15 | disposition left against medical advice (07) | DRG 872 ==
LOC: ED 15:35 → 4A 07-02 02:22 → 3A 07-02 12:06
PROVIDERS: ADMIT Internal Medicine; ATTEND Internal Medicine
DX: A41.9 Sepsis, unspecified organism (principal); L03.115 Cellulitis of right lower limb; Z68.41 Body mass index [BMI] 40.0-44.9, adult; E87.6 Hypokalemia; I10 Essential (primary) hypertension; F17.210 Nicotine dependence, cigarettes, uncomplicated; M70.41 Prepatellar bursitis, right knee; E66.01 Morbid (severe) obesity due to excess calories; Z88.0 Allergy status to penicillin; Z71.6 Tobacco abuse counseling
CPT/HCPCS: 36415; 80048; 80053; 80202; 82140; 83735; 85025; 85027; 87040; 87076; 87116; 87186; 90715; 93005; 93010; 99406; J0360; J1644; J2270; J2405; J3370; J3480; J7030; J7040